=== PATIENT | male | born 1965 | race Caucasian/White ===

== ENCOUNTER 2022-10-14 17:11 | Emergency (ER) | payer BC ==
[~2022-10-14] VITALS: Ht 180.3 cm; Wt 100.0 kg
[2022-10-14 17:16] VITALS: BP 124/91; PULSE 70; RESP 18; TEMP 98; O2SAT 97
[2022-10-14] MEDS ORDERED: LEVO-65 PO (20:34)
[2022-10-14] MEDS ORDERED: METR-159 PO (20:34)
== END 2022-10-14 20:40 | disposition home or self-care (01) ==
LOC: ER 17:12
DX: R19.7 Diarrhea, unspecified (principal); Z79.899 Other long term (current) drug therapy
CPT/HCPCS: 87045; 87046; 87324; 87449; 89055; 99283